=== PATIENT | male | born 1945 | race Caucasian/White ===

== ENCOUNTER 2022-01-31 13:53 | Emergency (ER) | payer SELFPAY ==
[~2022-01-31] VITALS: Ht 177.8 cm; Wt 77.3 kg
[2022-01-31 14:10] VITALS: TEMP 98.3
[2022-01-31] MEDS ORDERED: CEPHALEXIN500 M1 PO (15:20)
[2022-01-31 15:36] VITALS: BP 206/122; PULSE 105
[2022-01-31] MEDS ORDERED: DITROPAN XL 5MG5 M1 PO (15:41)
== END 2022-01-31 15:36 | disposition home or self-care (01) ==
LOC: COL.ER 13:53
DX: R30.0 Dysuria (principal); Z46.6 Encounter for fitting and adjustment of urinary device; Z88.1 Allergy status to other antibiotic agents; Z28.310 Unvaccinated for COVID-19

== ENCOUNTER → 2022-10-12 | Outpatient (CLI) | payer MEDICARE ==
[~2022-10-12] MED LIST: CEPHALEXIN500 M1 PO; DITROPAN XL 5MG5 M1 PO
== END ==
LOC: COL.RAD 12:04
DX: I12.9 Hypertensive chronic kidney disease with stage 1 through stage 4 chronic kidney disease, or unspecified chronic kidney disease (principal); N18.32 Chronic kidney disease, stage 3b; I16.0 Hypertensive urgency; N28.9 Disorder of kidney and ureter, unspecified